=== PATIENT | female | born 1985 | race Hispanic/Latino ===

== ENCOUNTER → 2021-12-23 09:38 | Outpatient (CLI) | payer BC, SELFPAY ==
--- NOTE | ~2021-12-23 | XR_ITS ---
XR knee RT 2V 12/23/2021 10:46 INDICATION: Right knee pain PROCEDURE: 2 views right knee COMPARISON: No prior studies for comparison. FINDINGS: Fracture, dislocation or subluxation is not identified. There is a small joint effusion. N o foreign bodies are identified. IMPRESSION: 1: Small knee effusion. Reviewed, dictated and finalized at location B. IMPRESSION: 1: Small knee effusion.
--- NOTE | ~2021-12-23 | XR_ITS ---
XR lumbar spine 2-3V DATE: 12/23/2021 10:46 INDICATION: Pain TECHNIQUE: AP, lateral, coned lateral lumbosacral views COMPARISON: None FINDINGS: There is 17 degrees rotatory levoscoliosis of the lumbar spine measured from 12 L4. There is mild degenerative disc disease of the lumbar spine. No fracture or bone destruction or spond ylolisthesis is evident. The sacroiliac joints appear normal. IMPRESSION: 17 degrees rotatory levoscoliosis and mild degenerative change of the lumbar spine Reviewed, dictated and finalized at location A. IMPRESSION: 17 degrees rotatory levoscoliosis and mild degenerative change of t he lumbar spine
--- NOTE | ~2021-12-23 | XR_ITS ---
XR thoracic spine 3V DATE: 12/23/2021 10:46 INDICATION: Scoliosis TECHNIQUE: AP, lateral, swimmer views COMPARISON: None FINDINGS: There is levoscoliosis and reversal of curvature of the cervical spine. There is 18 degrees dextroscoliosis measured from T4 to T12. No fracture or dislocation or bone destruction is detected. The thoracic pedicles are intact. No para spinal soft tissue thickening. IMPRESSION: 18 degrees dextroscoliosis Reviewed, dictated and finalized at location A. IMPRESSION: 18 degrees dextroscoliosis
== END ==
PROVIDERS: PCP Internal Medicine; Visit Provider Nurse Practitioner
DX: M25.569 Pain in unspecified knee (principal); M41.9 Scoliosis, unspecified; M25.461 Effusion, right knee
CPT/HCPCS: 72072; 72100; 73560